=== PATIENT | female | born 1985 | race African-American/Black ===

== ENCOUNTER 2016-11-17 17:23 | Emergency (ER) | payer OTHER, SELFPAY ==
[2016-11-17 18:08] LABS: Bilirubin Negative (Negative); Blood, Urine Negative (Negative); Glucose, Urine (Dipstick) Negative (Negative); Ketone, Urine Negative (Negative)
[2016-11-17 18:09] LABS: Nitrite Negative (Negative); Protein, Urine (Dipstick) Negative (Neg-Trace); Urobilinogen 0.2 mg/dL (0.2-1.0)
[2016-11-17 18:19] LABS: #Basophils 0.1 thou/uL (0.0-0.2); #Eosinphils 0.2 thou/uL (0.0-0.7); #Lymphocytes 3.5 thou/uL (1.20-3.40); #Monocytes 0.8 thou/uL (0.11-0.59); #Neutrophils 5.3 thou/uL (1.40-6.50); %Basophils 1.1 % (0.0-1.0); %Eosinophils 2.2 % (0.0-10.0); %Lymphocytes 35.2 % (21.0-51.0); %Monocytes 7.9 % (0.0-10.0); Hematocrit 40.3 % (36.0-47.0); White Blood Cell (WBC) Count 9.9 thou/uL (4.8-10.8)
[2016-11-17 18:19] LABS: Bacteria/HPF Rare-Few HPF (None Seen); Hyaline Casts/LPF 0-3 HYALINE CAST LPF (0-3 Hyaline)
[2016-11-17 18:45] LABS: ALT (SGPT) 13 U/L (8-55); AST (SGOT) 16 U/L (5-34); Alkaline Phosphatase 81 U/L (40-150); Anion Gap 12 mmol/L (10-20); BUN (Urea Nitrogen) 16 mg/dL (7.0-18.7); Bilirubin, Total 0.4 mg/dL (0.2-1.2); Calc. Creatinine Clearance 0 mL/min (70-130); Calcium 9.6 mg/dL (7.8-10.44); Carbon Dioxide 26 mmol/L (22-29); Chloride 107 mmol/L (98-107); Estimated GFR-MDRD Greater than 90; Globulin 3.1 g/dL (2.4-3.5); Protein, Total 7.4 g/dL (6.0-8.3)
[2016-11-17] MEDS ORDERED: cefTRIAXone\\ROCEPHIN 250 MG VIAL ONE (20:17)
[2016-11-17] MEDS ORDERED: Azithromycin 250 MG TAB ONE (20:17)
[2016-11-17] MEDS ORDERED: Lidocaine 1% PF 5 ML VIAL ONE (20:19)
== END 2016-11-17 21:05 | disposition home or self-care (01) ==
LOC: ERS 17:23
DX: N34.2 Other urethritis (principal); R31.9 Hematuria, unspecified; F41.9 Anxiety disorder, unspecified
CPT/HCPCS: 36415; 80053; 81003; 81015; 81025; 85025; 87480; 87491; 87510; 87591; 87660; 96372; J0696; J2001

== ENCOUNTER 2017-09-26 17:50 | Emergency (ER) | payer SELFPAY ==
[~2017-09-26 17:50] MED LIST: ISOVUE-370 76%-LOCM 1 ML ONE
[2017-09-26] MEDS ORDERED: Acetaminophen 500 MG TAB ONE (18:55)
--- NOTE | 2017-09-26 19:05 | RAD ---
PA AND LATERAL VIEWS OF THE CHEST: 09/26/17 HISTORY: Cough and shortness of breath. FINDINGS: The cardiomediastinum is normal and the lungs are well expanded and clear. The bony thorax is normal. IMPRESSION: Normal exam. POS: [facility]
[2017-09-26 19:08] LABS: #Eosinphils 0.1 thou/uL (0.0-0.7); #Lymphocytes 1.4 thou/uL (1.20-3.40); #Monocytes 0.8 thou/uL (0.11-0.59); #Neutrophils 11.6 thou/uL (1.40-6.50); %Basophils 0.2 % (0.0-1.0); %Eosinophils 0.4 % (0.0-10.0); %Lymphocytes 10.3 % (21.0-51.0); %Monocytes 5.5 % (0.0-10.0); %Neutrophils 83.6 % (42.0-75.0); Hemoglobin 14.2 g/dL (12.0-16.0); Mean Corpuscular HGB CONC 33.8 g/dL (32.0-36.0); Mean Corpuscular Hemoglobin 27.4 pg (27.0-31.0); Mean Platelet Volume 7.1 fL (7.4-10.4); Platelet Count 210 thou/uL (130-400); RBC Distribution Width 12.1 % (11.5-14.5); Red Blood Cell (RBC) Count 5.18 mill/uL (4.20-5.40); White Blood Cell (WBC) Count 13.9 thou/uL (4.8-10.8)
[2017-09-26 19:28] LABS: ALT (SGPT) 14 U/L (8-55); AST (SGOT) 15 U/L (5-34); Albumin 5.1 g/dL (3.5-5.0); Alkaline Phosphatase 79 U/L (40-150); Anion Gap 18 mmol/L (10-20); BUN (Urea Nitrogen) 12 mg/dL (7.0-18.7); Bilirubin, Total 1.3 mg/dL (0.2-1.2); Calc. Creatinine Clearance 0 mL/min (70-130); Calcium 9.7 mg/dL (7.8-10.44); Carbon Dioxide 23 mmol/L (22-29); Chloride 103 mmol/L (98-107); Estimated GFR-MDRD Greater than 90; Globulin 3.3 g/dL (2.4-3.5); Glucose 99 mg/dL (70-105); Potassium 3.1 mmol/L (3.5-5.1); Protein, Total 8.4 g/dL (6.0-8.3); Sodium 141 mmol/L (136-145)
[2017-09-26] MEDS ORDERED: Potassium Chloride 20 MEQ TAB ONE (20:00)
[2017-09-26 20:10] LABS: Acetaminophen Less than 6.0 mcg/mL (10.0-30.0); Alcohol Less than 10 mg/dL (Less than 10); Salicylate Less than 8.0 mg/dL (15.0-30.0)
[2017-09-26 20:12] LABS: BHCG - Serum Negative (NEGATIVE); Pregs Control Background? CLEAR/WHITE (CLR/WHITE); Pregs Control Bar Appear? YES (CONTROL BAR)
[2017-09-26 20:17] LABS: Bilirubin Negative (Negative); Blood, Urine Small (Negative); Clarity CLEAR (Clear); Glucose, Urine (Dipstick) Negative (Negative); Leukocyte Negative (Negative); Nitrite Negative (Negative); Protein, Urine (Dipstick) 30 mg/dL (Neg-Trace); Specific Gravity, Urine 1.027 (1.002-1.036); Urobilinogen 0.2 mg/dL (0.2-1.0)
[2017-09-26 20:20] LABS: Bacteria/HPF None Seen HPF (None Seen); Hyaline Casts/LPF 0-3 HYALINE CAST LPF (0-3 Hyaline); Pathc Cast-AUWi Flag 0.14 (0-2.49); Squamous Epithelial 0-3 HPF (0-3); WBC/HPF 0-3 HPF (0-3)
[2017-09-26] MEDS ORDERED: Ketorolac Tromethamine 30 MG/ML VIAL ONE (20:23)
--- NOTE | 2017-09-26 22:06 | CT ---
CT PULMONARY ANGIOGRAM WITH IV CONTRAST AND 3D POSTPROCESSING 09/26/17 HISTORY: Cough, chest pain, fever, bodyaches, chills and vomiting. FINDINGS: The pulmonary arterial trunk and main pulmonary arteries are well opacified without filling defects. However, the pulmonary arterial branches on either side are suboptimally evaluated due to inadequate opacification. The thoracic aorta is well opacified without aneurysmal dissection. No pleural or rajwinder cardial effusions are seen. There is free air in the mediastinum which also extends into the lower ne ck. The tracheobronchial tree appears patent. There are small patchy infiltrates in the medial aspect of the right upper lobe. There is also air in the spinal canal. IMPRESSION: 1. No evidence of embolism in the pulmonary arterial trunk and main pulmonary arteries. Peripher al pulmonary embolism cannot be excluded. 2. No evidence of thoracic aortic aneurysm or dissection. 3. Pneumomediastinum. 4. Pneumorrhachis (intraspinal air). This likely is in the setting of pneumomediastinum. Discussed over the telephone with ER physician Dr. Virgil Jose at 9:49 p.m. POS: [facility]
[2017-09-26] MEDS ORDERED: methylPREDNISolone Sod Succ/PF 125 MG/2 ML VIAL ONE (22:40)
== END 2017-09-26 23:13 | disposition home or self-care (01) ==
LOC: ERS 17:50
DX: J98.2 Interstitial emphysema (principal); J20.9 Acute bronchitis, unspecified; G95.89 Other specified diseases of spinal cord; F41.9 Anxiety disorder, unspecified; Z87.891 Personal history of nicotine dependence
CPT/HCPCS: 36415; 71046; 71275; 80053; 80307; 81003; 81015; 82550; 83605; 84703; 85025; 87040; 87081; 87430; 87804; 94640; 96361; 96374; 96375; J1885; J2930; J7620